=== PATIENT | female | born 1950 | race Caucasian/White ===

== ENCOUNTER 2016-12-11 10:56 | Day surgery (SDC) | payer MEDICARE ==
[~2016-12-11 10:56] MED LIST: RINGERS SOLUTION,LACTATED 1,000 ML IV PRN; ceFAZolin SODIUM 1 GM VIAL IV PRN
[2016-12-11] MEDS ORDERED: RINGERS SOLUTION,LACTATED 1,000 ML IV ONE (11:52)
[2016-12-11] MEDS ORDERED: BUPIVACAINE HCL 50 ML VIAL IJ ONE ×2 (12:50)
[2016-12-11 14:44] VITALS: BP 115/59
== END 2016-12-11 10:57 | disposition home or self-care (01) ==
LOC: AMB 10:56
PROVIDERS: ATTEND Orthopaedic Surgery
PROC: 0XBK0ZX Excision of Left Hand, Open Approach, Diagnostic (ICD-10-PCS; principal; 2016-12-11 15:15)
DX: M72.0 Palmar fascial fibromatosis [Dupuytren] (principal); E11.9 Type 2 diabetes mellitus without complications; I10 Essential (primary) hypertension; E78.5 Hyperlipidemia, unspecified; D64.9 Anemia, unspecified; E03.9 Hypothyroidism, unspecified; Z87.891 Personal history of nicotine dependence; Z68.27 Body mass index [BMI] 27.0-27.9, adult

== ENCOUNTER 2017-01-07 18:41 | Emergency (ER) | payer MEDICARE ==
[2017-01-07] MEDS ORDERED: ASPIRIN 325 MG TABLET.DR PO ONE (19:41)
--- OUTSIDE RECORDS SUMMARY | 2017-01-07 19:43 | XMS REPORT | Continuity of Care Document ---
:1950 Author Organization [facility] ([facility]) [place] [address] Phone [phone] Care Team Providers Name Role Phone Unavailable Primary Care Provider Unavailable Source Comments This disclosure is being made pursuant to the Care Everywhere program, applicable federal and state laws, and may not contain all informaitonavailable regarding this patient.[facility] ([facility]) Active Allergies and Adverse Reactions Not on File Current Medications Not on file Active Problems Not on file Social History Tobacco Use Types Packs/Day Years Used Date Never Assessed Plan of Care Health Maintenance Due Date Last Done Comments HCV Screening 1950 Hepatitis B Vaccine (1 of 3 - Primary Series) 1950 Tdap Vaccine 1959 Lipid Disorder Screening 1966 Td Vaccine 1966 Mammogram 1988 Colonoscopy 1998 Zoster Vaccine 2008 Osteoporosis Screening (DXA Bone Density) 2013 Pneumococcal Vaccine (1 of 2 - PCV13) 2013 Influenza Vaccine: Seasonal (#1) 06/15/2016 Results from Last 3 Months Not on file
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
[2017-01-07 19:57] LABS: Hematocrit 35.1 % (37.0-47.0); Hemoglobin 11.5 gm/dL (12.5-16.0); Mean Cell Volume 88.6 fl (78-100); Mean Corpuscular Hgb Conc 32.8 g/dl (32-36); Mean Platelet Volume 10.8 fl (6.0-9.5); Neutrophil # 2.9 K/mm3 (1.3-6.0); Neutrophil % 47.4 % (42-75.0); Platelet Count 191 K/mm3 (150-450); Red Blood Count 3.96 M/mm3 (4.2-5.4)
[2017-01-07] MEDS ORDERED: ASPIRIN 81 MG TAB.CHEW ONE (20:04)
[2017-01-07] MEDS ORDERED: ASPIRIN 81 MG TAB.CHEW PO ONE (20:07)
[2017-01-07 20:16] LABS: ALT 18 U/L (19-67); AST 12 U/L (0-48); Albumin * 3.5 gm/dl (3.4-5.0); Alkaline Phosphatase * 61 U/L (50-170); Anion Gap 10.2 mmol/L (6.8-13.8); BUN/Creatinine Ratio 20.6 (9.0-21.6); Bilirubin, Total 0.5 mg/dL (0.0-1.1); Blood Urea Nitrogen 20 mg/dL (3-23); Ca. Corrected For Albumin 8.7 mg/dL (8.4-10.2); Calcium * 8.6 mg/dL (7.9-10.9); Carbon Dioxide 30.4 mmol/L (24-32.6); Chloride 107 mmol/L (97-106); Glucose * 217 mg/dL (70-110); Potassium 3.6 mmol/L (3.4-4.6); Prothrombin Time (Patient) 10.3 Seconds (9.4-11.4); Sodium 144 mmol/L (132-142); Total Protein 6.2 gm/dL (6.2-8.2); Troponin I Less than 0.017 ng/ml (0.00-0.10)
[2017-01-07 20:19] LABS: INR 0.99 INR (0.90-1.10); Partial Thrombolplastin Time 26.3 Seconds (24-32)
[2017-01-07 21:43] VITALS: BP 149/71
== END 2017-01-07 20:35 | disposition home or self-care (01) ==
LOC: ER 18:41
DX: R07.89 Other chest pain (principal); R07.9 Chest pain, unspecified